=== PATIENT | female | born 1985 | race Caucasian/White ===

== ENCOUNTER 2017-10-04 13:55 | Emergency (ER) | payer BC ==
[~2017-10-04 13:55] MED LIST: MIREIUD IU; OMEP20TA39 PO
[2017-10-04 13:58] VITALS: BP 154/81; PULSE 101; RESP 18; TEMP 98.2; O2SAT 99
[2017-10-04] MEDS ORDERED: BACT800T5 PO (14:30)
[2017-10-04] MEDS ORDERED: SODIUM CHLOR 0.9% 1000 ML INJ 1,000 ML IV SCH (14:54)
--- NOTE | 2017-10-04 14:59 | PD ---
HPI Chief Complaint: Medical Clearance Time Seen by Provider: 14:35 Travel History International Travel<30 days: No Contact w/Intl Traveler<30days: No Traveled to known affect area: No History of Present Illness HPI 32-year-old female presents to the emergency Department with complaint of continued right flank pain since Friday. She was seen on Friday and was told she had a kidney infection and was given Cipro. After taking 3 doses of the Cipro she felt like her throat was closing and she numbness to the right side of her face. She had full body itching also. She went to [facility] on and they switched her to Bactrim and gave her prescription for [place] for pain. Her right sided facial numbness and full body itching has continued and she doesn't know if she is still having an allergic reaction to Bactrim. She denies airway edema or difficulty breathing. Reports nausea without vomiting. Denies fevers. Denies history of kidney stones. Denies hematuria. Reports continued dysuria. Denies headache or focal deficits or weakness. She took Benadryl last night and went to sleep and doesn't know if it helped her symptoms. She has been taking [place] for pain. Symptoms are moderate in severity. Pain is aggravated with movement and palpation. Allergies to penicillin. Primary care provider is [facility]. History of GERD. Has no other medical complaints. No other modifying factors or associated signs and symptoms. PFSH Past Medical History Cancer: No Cardiovascular Problems: No Diabetes: No Diminished Hearing: No Endocrine: No Gastrointestinal Disorders: Yes GERD: Yes Genitourinary: No Hepatitis: No Hiatal Hernia: No Immune Disorder: No Musculoskeletal: Yes Neurologic: Yes Psychiatric: No Reproductive: No Respiratory: No Thyroid Disease: No Tetanus Vaccination: Unknown Influenza Vaccination: No ?: Not LMP: 09/22/17 : 3 Para: 2 Miscarriage: 1 : 0 Ovarian Cysts: Yes Past Surgical History Abdominal Surgery: No AICD: Yes Cardiac Surgery: No Ear Surgery: No Endocrine Surgery: No Eye Surgery: No Genitourinary Surgery: No Gynecologic Surgery: No Joint Replacement: No Oral Surgery: No Pacemaker: No Thoracic Surgery: No Other Surgery: No Social History Alcohol Use: Yes (on occasion) Tobacco Use: No Substance Use: No Allergies-Medications (Allergen,Severity, Reaction): Coded Allergies: penicillin G (Unverified Allergy, Unknown, 10/04/17) Reported Meds & Prescriptions Reported Meds & Active Scripts Active Ibuprofen 800 Mg Tab 800 Mg PO Q6HR PRN Deltasone (Prednisone) 20 Mg Tab 40 Mg PO DAILY 4 Days start 10/05/2017 Reported Bactrim DS (Sulfamethoxazole-Trimethoprim) 800-160 Mg Tab 1 Tab PO BID Review of Systems Except as stated in HPI: all other systems reviewed are Neg Physical Exam Narrative GENERAL: Well-nourished, well-developed female patient, in no acute distress SKIN: Warm and dry. No rash. HEAD: Atraumatic. Normocephalic. No facial droop noted. Tongue midline. Finger to nose test normal. EYES: Pupils equal and round. No scleral icterus. No injection or drainage. ENT: Mucosa pink and moist. NECK: Trachea midline. CARDIOVASCULAR: Regular rate and rhythm. No murmur appreciated. RESPIRATORY: No accessory muscle use. Clear to auscultation. Breath sounds equal bilaterally. GASTROINTESTINAL: Abdomen soft, tenderness on palpation to the right quadrant, nondistended. Hepatic and splenic margins not palpable. Bowel sounds are active 4 quadrants. Bladder nontender and nondistended. MUSCULOSKELETAL: No obvious deformities. No clubbing. No cyanosis. No edema. BACK: Right CVA tenderness NEUROLOGICAL: Awake and alert. Oriented 3. No obvious cranial nerve deficits. Motor grossly within normal limits. Normal speech. No midline drift. No upper or lower extremity drift. No ataxia. Moves all extremities. 5/5 strength to all extremities. PSYCHIATRIC: Appropriate mood and affect; insight and judgment normal. Data Data Last Documented VS Vital Signs Date Time Temp Pulse Resp B/P (MAP) Pulse Ox O2 Delivery O2 Flow Rate FiO2 10/04/17 18:04 10/04/17 17:30 82 18 97 Room Air 10/04/17 13:58 98.2 Orders Orders Complete Blood Count With Diff (10/04/17 14:54) Comprehensive Metabolic Panel (10/04/17 14:54) Lipase (10/04/17 14:54) Urinalysis - C+S If Indicated (10/04/17 14:54) Ct Abd/Pel W/O Iv Contrast (10/04/17 14:54) Iv Access Insert/Monitor (10/04/17 14:54) Ondansetron Inj (Zofran Inj) (10/04/17 15:00) Sodium Chlor 0.9% 1000 Ml Inj (Ns 1000 M (10/04/17 14:54) Sodium Chloride 0.9% Flush (Ns Flush) (10/04/17 15:00) Ed Urine Pregnancytest Poc (10/04/17 14:54) Methylprednisolone So Succ Inj (Solumedr (10/04/17 15:00) Ketorolac Inj (Toradol Inj) (10/04/17 15:00) Ed Discharge Order (10/04/17 17:49) Labs Laboratory Tests Test 10/04/17 15:10 White Blood Count 9.0 TH/MM3 Red Blood Count 3.92 MIL/MM3 Hemoglobin 12.5 GM/DL Hematocrit 36.4 % Mean Corpuscular Volume 92.7 FL Mean Corpuscular Hemoglobin 31.8 PG Mean Corpuscular Hemoglobin Concent 34.3 % Red Cell Distribution Width 12.6 % Platelet Count 260 TH/MM3 Mean Platelet Volume 8.1 FL Neutrophils (%) (Auto) 52.8 % Lymphocytes (%) (Auto) 40.1 % Monocytes (%) (Auto) 6.2 % Eosinophils (%) (Auto) 0.6 % Basophils (%) (Auto) 0.3 % Neutrophils # (Auto) 4.7 TH/MM3 Lymphocytes # (Auto) 3.6 TH/MM3 Monocytes # (Auto) 0.6 TH/MM3 Eosinophils # (Auto) 0.1 TH/MM3 Basophils # (Auto) 0.0 TH/MM3 CBC Comment DIFF FINAL Differential Comment Urine Color LIGHT-YELLOW Urine Turbidity CLEAR Urine pH 6.5 Urine Specific [place] 1.003 Urine Protein NEG mg/dL Urine Glucose (UA) NEG mg/dL Urine Ketones NEG mg/dL Urine Occult Blood NEG Urine Nitrite NEG Urine Bilirubin NEG Urine Urobilinogen LESS THAN 2.0 MG/DL Urine Leukocyte Esterase NEG Urine RBC 2 /hpf Urine WBC 1 /hpf Urine Squamous Epithelial Cells 1 /hpf Microscopic Urinalysis Comment CULT NOT INDICATED Blood Urea Nitrogen 13 MG/DL Creatinine 0.79 MG/DL Random Glucose 76 MG/DL Total Protein 6.9 GM/DL Albumin 3.7 GM/DL Calcium Level 8.6 MG/DL Alkaline Phosphatase 53 U/L Aspartate Amino Transf (AST/SGOT) 16 U/L Alanine Aminotransferase (ALT/SGPT) 22 U/L Total Bilirubin 0.2 MG/DL Sodium Level 139 MEQ/L Potassium Level 3.7 MEQ/L Chloride Level 106 MEQ/L Carbon Dioxide Level 26.4 MEQ/L Anion Gap 7 MEQ/L Estimat Glomerular Filtration Rate 85 ML/MIN Lipase 127 U/L MDM Medical Decision Making Medical Screen Exam Complete: Yes Emergency Medical Condition: Yes Medical Record Reviewed: Yes Differential Diagnosis Nephrolithiasis, pyelonephritis, UTI Narrative Course 32-year-old female with possible allergic reaction with right-sided facial tingling and body itching since after taking Cipro on Friday. Neuro exam is unremarkable. She was switched to Bactrim on with continued symptoms. She is also having continued right flank pain secondary to being treated for "kidney infection." She is driving so I'm unable to administer Benadryl. IV, normal saline bolus, CT abdomen/pelvis, Toradol, Solu-Medrol, Zofran ordered. CBC, CMP, lipase, urinalysis, CT abdomen/pelvis unremarkable. Deltasone, ibuprofen prescribed for home. Instructed patient to take Benadryl as directed as needed for itching. Instructed patient she could stop taking the antibiotics as her urine is without signs of infection. She states she had not had a urinalysis prior to starting the antibiotics. Instructed patient to follow up with primary care provider. Patient verbalizes understanding and agreement with treatment plan. Patient is medically cleared and stable for discharge. Discussed reasons to return to the emergency department. Patient agrees with treatment plan. The patients vital signs are stable and the patient is stable for outpatient follow-up and treatment. Patient discharged home, stable and in no acute distress. Diagnosis Primary Impression: Right flank pain Referrals: Primary Care Physician Patient Instructions: Flank Pain (ED), General Instructions Additional Instructions: Take oral steroids as prescribed [id number] topicals to reduce itch Benadryl as directed and as needed to reduce itch Ibuprofen or Tylenol as directed and as needed for pain Follow-up with primary care provider Return to the emergency department immediately with worsening of symptoms Med/Other Pt SpecificInfo: Prescription(s) given Scripts Ibuprofen (Ibuprofen) 800 Mg Tab 800 MG PO Q6HR Y for PAIN, #30 TAB 0 Refills Prov: Doris Aguilar [employer]ER 10/04/17 Prednisone (Deltasone) 20 Mg Tab 40 MG PO DAILY for 4 Days, #8 TAB 0 Refills start 10/05/2017 Prov: Doris Aguilar 10/04/17 Disposition: 01 DISCHARGE HOME Condition: Stable Doris Aguilar Oct 04, 2017 14:59
[2017-10-04] MEDS ORDERED: SODIUM CHLORIDE 0.9% FLUSH 10 ML FLUSH IV FLUSH PRN (15:00)
[2017-10-04] MEDS ORDERED: KETOROLAC TROMETHAMINE 30 MG/ML (IVP) VIAL IVP ONE (15:00)
[2017-10-04] MEDS ORDERED: ONDANSETRON HCL 4 MG/2 ML VIAL IVP ONE (15:00)
[2017-10-04] MEDS ORDERED: methylPREDNISolone SOD SUCC 125 MG/2 ML VIAL IV PUSH ONE (15:00)
[2017-10-04 15:20] LABS: AUTOMATED NEUTROPHIL # 4.7 TH/MM3 (1.8-7.7); BASOPHIL % 0.3 % (0.0-2.0); EOSINOPHIL # 0.1 TH/MM3 (0-0.4); EOSINOPHIL % 0.6 % (0.0-4.0); HEMATOCRIT 36.4 % (35.0-46.0); HEMOGLOBIN 12.5 GM/DL (11.6-15.3); LYMPH % 40.1 % (9.0-44.0); LYMPHOCYTE # 3.6 TH/MM3 (1.0-4.8); MEAN CELL VOLUME 92.7 FL (80.0-100.0); MEAN CORPUSCULAR HEMOGLOBIN 31.8 PG (27.0-34.0); MEAN CORPUSCULAR HGB CONC 34.3 % (32.0-36.0); MEAN PLATELET VOLUME 8.1 FL (7.0-11.0); MONO % 6.2 % (0.0-8.0); MONOCYTE # 0.6 TH/MM3 (0-0.9); NEUT % 52.8 % (16.0-70.0); PLATELET COUNT 260 TH/MM3 (150-450); RED BLOOD COUNT 3.92 MIL/MM3 (4.00-5.30); RED CELL DISTRIBUTION WIDTH 12.6 % (11.6-17.2)
[2017-10-04 15:29] LABS: BILIRUBIN, URINE NEG (NEG); BLOOD, URINE NEG (NEG); GLUCOSE,URINE NEG (NEG); KETONE, URINE NEG (NEG); NITRITE,URINE NEG (NEG); PH, URINE 6.5 (5.0-8.5); SQUAMOUS EPITHELIAL CELL URINE 1 /hpf (0-5); URINE COLOR LIGHT-YELLOW (YELLW/STRAW); URINE LEUKOCYTE ESTERASE NEG (NEG)
[2017-10-04 15:47] LABS: ALBUMIN 3.7 GM/DL (3.4-5.0); ALT (GPT) 22 U/L (10-53); AST (GOT) 16 U/L (15-37); BICARBONATE 26.4 MEQ/L (21.0-32.0); BLOOD UREA NITROGEN 13 MG/DL (7-18); CALCIUM 8.6 MG/DL (8.5-10.1); CHLORIDE 106 MEQ/L (98-107); CREATININE 0.79 MG/DL (0.50-1.00); GLOMERULAR FILTRATION RATE 85 ML/MIN (>89); GLUCOSE,RANDOM 76 MG/DL (74-106); LIPASE 127 U/L (73-393); SODIUM (NA) 139 MEQ/L (136-145)
[2017-10-04 15:50] LABS: ALKALINE PHOSPHATASE 53 U/L (45-117); TOTAL BILIRUBIN ADULT 0.2 MG/DL (0.2-1.0); TOTAL PROTEIN 6.9 GM/DL (6.4-8.2)
--- NOTE | 2017-10-04 17:13 | RADRPT ---
EXAM DATE/TIME: 10/04/2017 16:37 [facility] COMPARISON: No previous studies available for comparison. INDICATIONS : Right flank pain. ORAL CONTRAST: No oral contrast ingested. RADIATION DOSE: 8.53 CTDIvol (mGy) MEDICAL HISTORY : Gastroesophageal reflux disease. SURGICAL HISTORY : None. ENCOUNTER: Initial ACUITY: 4 - 6 days PAIN SCALE: 6/10 LOCATION: Right flank TECHNIQUE: Volumetric scanning of the abdomen and pelvis was performed. Using automated exposure control and ad justment of the mA and/or kV according to patient size, radiation dose was kept as low as reasonably achievable to obtain optimal diagnostic quality images. DICOM format image data is available electro nically for review and comparison. FINDINGS: LOWER LUNGS: The visualized lower lungs are clear. LIVER: Homogeneous density without lesion. There is no dilation of the biliary tree. No calcified gallston es. SPLEEN: Normal size without lesion. PANCREAS: Within normal limits. KIDNEYS: Normal in size and shape. There is no mass, stone, or hydronephrosis. ADRENAL GLANDS: Within normal limits. VASCULAR: There is no aortic aneurysm. BOWEL/MESENTERY: The stomach, small bowel, and colon demonstrate no acute abnormality. There is no free intraperitone al air or fluid. ABDOMINAL WALL: Within normal limits. RETROPERITONEUM: There is no lymphadenopathy. BLADDER: No wall thickening or mass. REPRODUCTIVE: Within normal limits. Intrauterine device is in the expected position INGUINAL: There is no lymphadenopathy or hernia. MUSCULOSKELETAL: Within normal limits for patient age. CONCLUSION: 1. No evidence of acute abdominal or pelvic process. No masses are identified. 2. Intrauterine device in the expected position Tc Adamson MD on October 04, 2017 at 17:09 Board Certified Radiologist. This report was verified electronically.
[2017-10-04 17:30] VITALS: BP 117/64; PULSE 82; RESP 18; O2SAT 97
[2017-10-04] MEDS ORDERED: PRED-503 PO (17:47)
[2017-10-04] MEDS ORDERED: IBUP1TAB7 PO (17:47)
== END 2017-10-04 18:07 | disposition home or self-care (01) ==
LOC: NEPD 13:55
DX: R10.9 Unspecified abdominal pain (principal); R20.0 Anesthesia of skin; R30.0 Dysuria
CPT/HCPCS: 74176; 80053; 81001; 83690; 84703; 85025; 96361; 96374; 96375; 99285; J1885; J2405; J2930; J7030